=== PATIENT | female | born 1955 | race Caucasian/White ===

== ENCOUNTER 2018-05-10 08:39 | Emergency (ER) | payer OTHER ==
[~2018-05-10] VITALS: Ht 172.7 cm; Wt 76.8 kg
[~2018-05-10 08:39] MED LIST: AMBIEN10 M1 PO; BP MEDICATION IV; CIPRO750 MG PO; COLACE100 MG PO; CYMBALTA60 MG PO; EFFIENT10 MG PO; LIPITOR80 MG PO; LOVENOX30 MG/0.3 SQ; OXYCODONE10 MG PO; OXYCODONE5 MG PO; PLAVIX75 MG PO; PLETAL100 MG PO; PRINIVIL5 MG PO; ZOLOFT; ZOLOFT100 MG PO
[2018-05-10 09:58] LABS: BASOPHIL (%) 0.9 % (0-1); BASOPHIL COUNT 0.1 K/uL (0-0.1); EOSINOPHIL (%) 2.1 % (0-5); EOSINOPHIL COUNT 0.2 K/uL (0-0.3); IMMATURE GRANULOCYTE (%) 0.4 % (0.0-0.7); LYMPHOCYTE (%) 22.4 % (15-42); LYMPHOCYTE COUNT 1.8 K/uL (1.0-2.8); MCH 33.2 PG (29.0-34.0); MCHC 34.1 G/DL (30.0-36.0); MCV 97.2 FL (83-99); MONOCYTE (%) 8.2 % (3-12); MONOCYTE COUNT 0.7 K/uL (0-0.8); NEUTROPHIL COUNT 5.3 K/uL (1.8-6.4); PLATELET COUNT 345 K/uL (156-360); RBC DIS.WIDTH-SD 46.3 % (39-53); RED BLOOD COUNT 4.22 M/uL (3.80-5.20); WHITE BLOOD COUNT 8.1 K/uL (4.1-10.2)
[2018-05-10 10:10] LABS: CHLORIDE 106 mEq/L (99-109); POTASSIUM 4.1 mEq/L (3.7-5.4); SODIUM 142 mEq/L (136-147)
[2018-05-10 10:12] LABS: GLUCOSE 123 mg/dL (70-99)
[2018-05-10 10:16] LABS: CREATININE 0.8 mg/dL (0.6-1.3); GFR ESTIMATE (CALCULATED) > 59 mL/min/
[2018-05-10 10:17] LABS: UREA NITROGEN (BUN) 15 mg/dL (9-23)
[2018-05-10] MEDS ORDERED: KEFLEX500 MG PO (10:54)
[2018-05-10 11:15] VITALS: BP 177/81
== END 2018-05-10 11:20 | disposition home or self-care (01) ==
LOC: EME 08:39
PROVIDERS: Emergency Medicine
DX: L03.115 Cellulitis of right lower limb (principal); M79.604 Pain in right leg; I10 Essential (primary) hypertension; E78.5 Hyperlipidemia, unspecified; Z87.891 Personal history of nicotine dependence; Z79.02 Long term (current) use of antithrombotics/antiplatelets; Z88.6 Allergy status to analgesic agent
CPT/HCPCS: 80048; 85025; 85610; 93971; 99281; 99284